=== PATIENT | male | born 1990 | race Caucasian/White ===

== ENCOUNTER 2017-01-31 12:16 | Emergency (ER) | payer SELFPAY ==
[~2017-01-31] VITALS: Ht 167.6 cm; Wt 87.9 kg
[2017-01-31 12:29] VITALS: BP 160/85; PULSE 105; RESP 14; TEMP 99.2; O2SAT 98
--- NOTE | 2017-01-31 12:58 | PD ---
HPI Chief Complaint: ENT Complaint Time Seen by Provider: 12:51 Travel History International Travel<30 days: No Contact w/Intl Traveler<30days: No Traveled to known affect area: No History of Present Illness HPI 26-year-old male that presents to the ED for evaluation of left ear pain. Per patient she's had ear infections almost once a year for the past 4 years. Per patient feels similar to the previous ones. He does swim a lot. Per patient the pain is with movement of the year. Pain is 7 out of 10. Other medical issues. No allergies to medication. No chest or shortness of breath. No cough or runny nose. PFSH Social History Alcohol Use: No Tobacco Use: No Substance Use: No Allergies-Medications (Allergen,Severity, Reaction): Coded Allergies: No Known Allergies (Verified Allergy, Unknown, 01/31/17) Reported Meds & Prescriptions Reported Meds & Active Scripts Active No Active Prescriptions or Reported Medications Review of Systems Except as stated in HPI: all other systems reviewed are Neg Physical Exam Narrative GENERAL: Well-nourished, well-developed patient in no apparent distress. SKIN: Warm and dry. HEAD: Atraumatic. Normocephalic. EYES: Pupils equal and round reactive to light and accommodation. No scleral icterus. No injection or drainage. ENT: No nasal bleeding or discharge. Mucous membranes pink and moist. TMs are clear with no sign of infection or perforation. No mastoid tenderness. Ear canal on the right is intact. Ear canal on the left is swollen with exudates noted. Painful with touch. No lymphadenopathy. Nostril mucosa is red and moist with clear mucus noted. No sinus tenderness to palpation noted. Tonsils are not enlarged or swollen. No ulvua Deviation. Tongue is midline. NECK: Trachea midline. No JVD. No meningeal signs noted CARDIOVASCULAR: Regular rate and rhythm. RESPIRATORY: No accessory muscle use. Clear to auscultation. Breath sounds equal bilaterally. GASTROINTESTINAL: Abdomen soft, non-tender, nondistended. Hepatic and splenic margins not palpable. MUSCULOSKELETAL: Extremities without clubbing, cyanosis, or edema. No obvious deformities. NEUROLOGICAL: Awake and alert. No obvious cranial nerve deficits. Motor grossly within normal limits. Five out of 5 muscle strength in the arms and legs. Normal speech. PSYCHIATRIC: Appropriate mood and affect; insight and judgment normal. Data Data Last Documented VS Vital Signs Date Time Temp Pulse Resp B/P (MAP) Pulse Ox O2 Delivery O2 Flow Rate FiO2 01/31/17 12:29 99.2 105 14 160/85 (110) 98 Room Air Orders Orders [id number] Otic Susp (Cortispo (01/31/17 13:00) MDM Medical Decision Making Medical Screen Exam Complete: Yes Emergency Medical Condition: Yes Medical Record Reviewed: Yes Differential Diagnosis Otitis media versus otitis externa versus ear infection Narrative Course 26-year-old male that presents to the ED for evaluation of left ear pain. Patient was properly examined and was found to have signs and symptoms very consistent with otitis externa. Patient will be treated for this with Corticosporin drops. Patient was given first dose here. Told to follow with PCP. See ED if worsening symptoms. Diagnosis Primary Impression: Otitis externa Qualified Codes: H60.332 - Swimmer's ear, left ear Patient Instructions: General Instructions Additional Instructions: Take medication as prescribed. Follow with PCP. See ED worsening symptoms. Med/Other Pt SpecificInfo: Prescription(s) given Scripts No Active Prescriptions or Reported Meds Disposition: 01 DISCHARGE HOME Condition: Stable Martell Workman Jan 31, 2017 12:58
[2017-01-31] MEDS ORDERED: NEOMYCIN/POLYMYXIN/HYDROCORT OTIC SUSP 10 ML BTL RIGHT EAR ONE (13:00)
[2017-01-31] MEDS ORDERED: NEOM0.1S4 LEFT EAR (13:01)
== END 2017-01-31 13:47 | disposition home or self-care (01) ==
LOC: PHEFT 12:16
DX: H60.332 Swimmer's ear, left ear (principal)
CPT/HCPCS: 99283